=== PATIENT | female | born 2000 | race Caucasian/White ===

== ENCOUNTER 2019-08-03 03:02 | Emergency (ER) | payer OTHER ==
[2019-08-03] MEDS ORDERED: CEFTRIAXONE INJ 250 MG VIAL IM ONE (03:27)
[2019-08-03] MEDS ORDERED: LIDOCAINE 1% INJ-PF (10 MG/ML) 30 ML SDV INJ ONE (03:27)
[2019-08-03] MEDS ORDERED: AZITHROMYCIN 250 MG TABLET PO ONE (03:27)
[2019-08-03 04:32] LABS: ALKALINE PHOSPHATASE 39 U/L (38-126); ANION GAP 13 (5-19); ASPARTATE AMINO TRANSFERASE 23 U/L (14-36); BILIRUBIN,TOTAL 0.4 mg/dL (0.2-1.3); BLOOD UREA NITROGEN 9 mg/dL (7-20); CALCIUM 9.9 mg/dL (8.4-10.2); CARBON DIOXIDE 21 mmol/L (22-30); CHLORIDE 107 mmol/L (98-107); GLUCOSE 108 mg/dL (75-110); POTASSIUM 3.7 mmol/L (3.6-5.0); TOTAL PROTEIN 8.1 g/dL (6.3-8.2)
[2019-08-03 04:50] LABS: ABSOLUTE LYMPHOCYTES (AUTO) 1.8 10^3/uL (0.5-4.7); ABSOLUTE MONOCYTES (AUTO) 0.8 10^3/uL (0.1-1.4); BASOPHILS % (AUTO) 0.3 % (0-2); EOSINOPHILS % (AUTO) 0.2 % (0-6); HEMATOCRIT 38.5 % (36.0-47.0); HEMOGLOBIN 13.2 g/dL (12.0-15.5); LYMPHOCYTES % (AUTO) 18.6 % (13-45); MEAN CORPUSCULAR HGB CONC 34.4 g/dL (32.0-36.0); MEAN CORPUSCULAR VOLUME 87 fl (80-97); MONOCYTES % (AUTO) 8.6 % (3-13); PLATELET COUNT 275 10^3/uL (150-450); RED BLOOD COUNT 4.41 10^6/uL (3.72-5.28); RED CELL DISTRIBUTION WIDTH 12.7 % (11.5-14.0); SEGMENTED NEUTROPHILS % (AUTO) 72.3 % (42-78); TOTAL CELLS COUNTED % (AUTO) 100 %; WHITE BLOOD COUNT 9.6 10^3/uL (4.0-10.5)
[2019-08-03] MEDS ORDERED: LEVONORGESTREL 1.5 MG TABLET (1 TAB/ER-USE) PO ONE (05:35)
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
[2019-08-03 05:58] LABS: BACTERIA (WET MOUNT) 4+ BACTERIA SEEN; EPITHELIALS (WET MOUNT) 4+ EPITHELIALS SEEN; T.VAGINALIS (WET MOUNT) NO TRICHOMONAS SEEN; WBCS (WET MOUNT) 1+ WBCS SEEN; YEAST (WET MOUNT) NO YEAST SEEN
[2019-08-03] MEDS ORDERED: AZITHROMYCIN 250 MG TABLET ONE (06:53)
[2019-08-03] MEDS ORDERED: CEFTRIAXONE INJ 250 MG VIAL ONE (06:53)
[2019-08-03] MEDS ORDERED: LIDOCAINE 1% INJ-PF (10 MG/ML) 30 ML SDV ONE (06:54)
[2019-08-03 07:14] VITALS: BP 121/69
[2019-08-03] MEDS ORDERED: ONDANSETRON ODT 4 MG TAB (6 TAB/ER DISP) PO PRN (07:22)
[2019-08-04 15:37] LABS: HEPATITS B SURFACE ANTIGEN Negative (Negative)
[2019-08-05 10:40] LABS: HEPATITIS C VIRUS ANTIBODY <0.1 s/co ratio (0.0-0.9)
== END 2019-08-03 07:32 | disposition home or self-care (01) ==
LOC: ER 03:02
DX: T76.21XA Adult sexual abuse, suspected, initial encounter (principal); F10.10 Alcohol abuse, uncomplicated; Y92.003 Bedroom of unspecified non-institutional (private) residence as the place of occurrence of the external cause
CPT/HCPCS: 99285; 96372; 36415; 87210; 85025; 81025; 86592; 80053; 86701; 80074; A9270; J3490; J0696